=== PATIENT | female | born 1960 | race Caucasian/White ===

== ENCOUNTER 2020-09-22 09:03 | Day surgery (SDC) | payer MEDICAID ==
[~2020-09-22] VITALS: Ht 160 cm; Wt 56.8 kg
[~2020-09-22 09:03] MED LIST: ASPI-611 PO; ESTR1PAT43 TOP; IBUP-1984 PO; LEVO175T2 PO
[2020-09-22 09:13] VITALS: BP 167/73
[2020-09-22] MEDS ORDERED: MIDAZolam 1 MG/ML 5ML VIAL ONE (09:30)
[2020-09-22] MEDS ORDERED: fentaNYL/PF 50MCG/1 ML 2ML syringe ONE (09:30)
[2020-09-22] MEDS ORDERED: SYN0.088T PO (09:43)
[2020-09-22] MEDS ORDERED: ACET-1008 PO (09:46)
[2020-09-22 11:27] VITALS: BP 129/57
[2020-09-22 11:37] VITALS: BP 124/65
[2020-09-22 11:47] VITALS: BP 125/60
[2020-09-22 11:57] VITALS: BP 127/60
== END 2020-09-22 12:10 | disposition home or self-care (01) ==
LOC: GI LAB 09:03
PROVIDERS: ATTEND Internal Medicine Gastroenterology
DX: K92.1 Melena (principal); K62.6 Ulcer of anus and rectum; K64.8 Other hemorrhoids; Z88.0 Allergy status to penicillin; Z79.899 Other long term (current) drug therapy
CPT/HCPCS: 45380; 99152; 99153; J2250; J3010; J7040; A4620

== ENCOUNTER 2023-04-28 11:16 | Emergency (ER) | payer MEDICAID ==
[~2023-04-28] VITALS: Ht 160 cm; Wt 58.4 kg
[~2023-04-28 11:16] MED LIST changes: +ACET-1008 PO; -ASPI-611 PO; -IBUP-1984 PO; -LEVO175T2 PO; +SYN0.088T PO
--- NOTE | 2023-04-28 11:50 | NUR ---
PATIENT PRESENTS TO THE ER FOR LEFT SHOULDER PAIN FOR ONE WEEK. PT SEEN AT [facility] THIS MORNING.
[2023-04-28] MEDS ORDERED: oxyCODONE/APAP 5-325mg tablet PO ONE (14:00)
[2023-04-28] MEDS ORDERED: ketorolac tromethamine 15mg/ml inj. IM ONE (14:00)
[2023-04-28 14:37] LABS: BASOPHILS % (AUTO) 0.3 % (0-1); EOSINOPHILS % (AUTO) 0.5 % (0-6); HEMATOCRIT 38.9 % (35.0-45.0); HEMOGLOBIN 13.4 g/dl (12.0-16.0); LYMPHOCYTES # (AUTO) 1.4 X10'3 (1.1-4.8); LYMPHOCYTES % (AUTO) 17.4 % (21-51); MEAN CORPUSCULAR HEMOGLOBIN 31.4 PG (27.0-31.0); MEAN CORPUSCULAR HGB CONC 34.4 g/dL (33.0-36.5); MEAN CORPUSCULAR VOLUME 91.2 FL (78-98); MEAN PLATELET VOLUME 5.9 FL (7.4-10.4); MONOCYTES # (AUTO) 0.4 X10'3 (0-0.9); MONOCYTES % (AUTO) 5.6 % (2-12); NEUTROPHILS # (AUTO) 6.1 X10'3 (1.8-7.7); NEUTROPHILS % (AUTO) 76.2 % (42-75); PLATELET COUNT 343 X10'3 (140-440); RED BLOOD COUNT 4.26 X10'6 (4.20-5.60); RED CELL DISTRIBUTION WIDTH 13.9 % (11.5-14.5)
[2023-04-28 14:47] LABS: ALANINE AMINOTRANSFERASE 33 U/L (12-78); ALBUMIN 4.2 G/DL (3.4-5.0); ALBUMIN/GLOBULIN RATIO 1.1 (1.1-1.5); ALKALINE PHOSPHATASE 89 IU/L (46-116); ANION GAP 8 (8-16); ASPARTATE AMINO TRANSFERASE 28 U/L (10-37); BILIRUBIN,TOTAL 0.8 MG/DL (0.1-1.0); BLOOD UREA NITROGEN 9 MG/DL (7-18); BUN/CREATININE RATIO 16.4 (10.0-20.0); CALCIUM 9.2 MG/DL (8.5-10.1); CHLORIDE 101 MMOL/L (99-107); CREATININE 0.55 MG/DL (0.40-0.90); GLUCOSE 102 MG/DL (70-104); SODIUM 137 MMOL/L (135-145); TOTAL CARBON DIOXIDE 28.3 MMOL/L (24-32); TOTAL PROTEIN 8.1 G/DL (6.4-8.2); eCRCL 87 ML/MIN; eGFR > 90 ML/MIN
[2023-04-28] MEDS ORDERED: CYCL-1 PO (15:05)
[2023-04-28] MEDS ORDERED: IBUP-1984 PO (15:05)
--- NOTE | 2023-04-28 15:27 | NUR ---
TECH PLACED SLING ON PT, TECH PLACED SLING APPROPRITELY ON PT LEFT ARM AND HAD PT TRACK OILER CHECK PT SLING TO ENSURE THE SLING WAS APPROPRIATE FOR PT. TRACK OILER STATED THE SLING WAS APPROPRIATE FOR THE PT. PT ABLE TO WIGGLE FINGERS AND HAD FEELING IN THEIR FINGERTIPS UPON TECH TOUCHING FINGERTIPS.
[2023-04-28 15:29] VITALS: BP 137/73; PULSE 79; TEMP 97.8; O2SAT 98
[2023-04-28 15:32] VITALS: RESP 17
--- NOTE | 2023-04-28 16:35 | NUR ---
ASSESSMENT MADE BY [employer] ARCHITECT REVIEWED AND APPROVED BY THIS RN
== END 2023-04-28 16:36 | disposition home or self-care (01) ==
LOC: ER 11:16
DX: S46.912A Strain of unspecified muscle, fascia and tendon at shoulder and upper arm level, left arm, initial encounter (principal); Z88.0 Allergy status to penicillin; Z79.899 Other long term (current) drug therapy; X58.XXXA Exposure to other specified factors, initial encounter; Y93.89 Activity, other specified; Y92.89 Other specified places as the place of occurrence of the external cause; Y99.8 Other external cause status
CPT/HCPCS: 36415; 73030; 80053; 84484; 85025; 93005; 96372; 99285; J1885; A4565

== ENCOUNTER 2024-01-11 12:14 | Emergency (ER) | payer MEDICAID ==
[~2024-01-11] VITALS: Ht 157.5 cm; Wt 61.0 kg
[~2024-01-11 12:14] MED LIST changes: +CYCL-1 PO
[2024-01-11 15:59] VITALS: BP 119/62; PULSE 77; RESP 16; TEMP 98.3; O2SAT 98
== END 2024-01-11 16:00 | disposition home or self-care (01) ==
LOC: ER 12:14
DX: S50.02XA Contusion of left elbow, initial encounter (principal); R07.89 Other chest pain; Z88.0 Allergy status to penicillin; Z79.2 Long term (current) use of antibiotics; Z79.1 Long term (current) use of non-steroidal anti-inflammatories (NSAID); Z85.9 Personal history of malignant neoplasm, unspecified; W08.XXXA Fall from other furniture, initial encounter; Y93.89 Activity, other specified; Y92.89 Other specified places as the place of occurrence of the external cause; Y99.8 Other external cause status
CPT/HCPCS: 73080; 82948; 93005; 99284; A4565